=== PATIENT | male | born 1965 | race American Indian/Alaskan Native ===

== ENCOUNTER 2019-03-01 22:04 | Inpatient (IN) | payer SELFPAY ==
--- NOTE | 2019-03-02 00:07 | Emergency Department Report ---
ED Abdominal Pain HPI - General Chief Complaint: Abdominal Pain Stated Complaint: SEVERE ABDOMINAL PAIN Time Seen by Provider: 03/01/19 23:47 Source: patient Mode of arrival: Ambulatory Limitations: No Limitations - History of Present Illness Initial Comments: Patient is a 53-year-old male presents to emergency room with complaints of left lower quadrant abdominal pain that began 6 days ago. Describes the pain as an aching. States that he has had constipation for 3 days. States he is still able to pass gas. pt states whenever he tries to eat he has abdominal distention so he has not been eating very much. Denies any nausea, vomiting, diarrhea, blood in the stool, any other symptoms. States he has a past medical history of hypertension. denies any allergies to medications. denies any prior abdominal surgeries. States that he tried to take Metamucil for his constipation but was still not able to have a bowel movement. pt has not had a colonoscopy. Severity scale (0 -10): 7 - Related Data Allergies Allergy/AdvReac Type Severity Reaction Status Date / Time No Known Allergies Allergy Verified 03/02/19 03:00 ED Review of Systems ROS: Stated complaint: SEVERE ABDOMINAL PAIN Other details as noted in HPI Comment: All other systems reviewed and negative ED Past Medical Hx - Past Medical History Previous Medical History?: Yes Hx Hypertension: Yes - Surgical History Past Surgical History?: No - Social History Smoking Status: Former Smoker Substance Use Type: None ED Physical Exam - General Limitations: No Limitations General appearance: alert, in no apparent distress - Head Head exam: Present: atraumatic, normocephalic - Eye Eye exam: Present: normal appearance - ENT ENT exam: Present: mucous membranes moist - Respiratory Respiratory exam: Present: normal lung sounds bilaterally. Absent: respiratory distress, wheezes, rales, rhonchi, stridor, chest wall tenderness, accessory muscle use, decreased breath sounds, prolonged expiratory - Cardiovascular Cardiovascular Exam: Present: regular rate, normal rhythm, normal heart sounds. Absent: systolic murmur, diastolic murmur, rubs, gallop - GI/Abdominal GI/Abdominal exam: Present: soft, tenderness (LLQ), normal bowel sounds, other (no peritoneal signs). Absent: distended, guarding, rebound, rigid - exam: Present: normal inspection, other (no testicular edema or pain with palpation, no inguinal hernia, crop picker: TERESE felipe). Absent: testicular tenderness, urethral discharge, scrotal swelling External exam: Present: normal external exam. Absent: erythema, swelling, lesions, lacerations, ecchymosis, bleeding - Neurological Exam Neurological exam: Present: alert, oriented X3 - Psychiatric Psychiatric exam: Present: normal affect, normal mood - Skin Skin exam: Present: warm, dry, intact ED Course Vital Signs 03/01/19 03/01/19 03/02/19 23:20 23:50 00:20 Temperature 98.2 F 98.1 F Pulse Rate 95 H 82 Respiratory 20 19 18 Rate Blood Pressure 144/111 Blood Pressure 156/90 [Left] O2 Sat by Pulse 98 99 Oximetry 03/02/19 00:50 Temperature Pulse Rate Respiratory 18 Rate Blood Pressure Blood Pressure [Left] O2 Sat by Pulse Oximetry - Consultations Consultation #1: 03/02/19 01:[address] Frazier, general surgeon who will consult on patient, will see pt in AM, advised to keep NPO, give abx, and discussed if he had cardiac issues then to consult cardiology for pre surgical evaluation, advised pt only has HTN. Consultation #2: 03/02/19 01:[address] Marino, hospitalist who will accept and resume care of pt and admit pt to the hospital ED Medical Decision Making - Lab Data Result diagrams: 03/01/19 Unknown 03/01/19 Unknown Lab Results 03/01/19 03/01/19 03/02/19 Range/Units Unknown Unknown Unknown WBC 9.1 (4.5-11.0) K/mm3 RBC 4.39 (3.65-5.03) M/mm3 Hgb 12.9 (11.8-15.2) gm/dl Hct 38.6 (35.5-45.6) % MCV 88 (84-94) fl MCH 29 (28-32) pg MCHC 33 (32-34) % RDW 13.2 (13.2-15.2) % Plt Count 276 (140-440) K/mm3 Lymph % (Auto) 25.0 (13.4-35.0) % [place] % (Auto) 7.3 (0.0-7.3) % Eos % (Auto) 1.0 (0.0-4.3) % Baso % (Auto) 0.5 (0.0-1.8) % Lymph # 2.3 (1.2-5.4) K/mm3 [place] # 0.7 (0.0-0.8) K/mm3 Eos # 0.1 (0.0-0.4) K/mm3 Baso # 0.0 (0.0-0.1) K/mm3 Seg Neutrophils % 66.2 (40.0-70.0) % Seg Neutrophils # 6.0 (1.8-7.7) K/mm3 Sodium 139 (137-145) mmol/L Potassium 3.4 L (3.6-5.0) mmol/L Chloride 102.1 (98-107) mmol/L Carbon Dioxide 24 (22-30) mmol/L Anion Gap 16 mmol/L BUN 12 (9-20) mg/dL Creatinine 0.9 (0.8-1.5) mg/dL Estimated GFR > 60 ml/min BUN/Creatinine Ratio 13 % Glucose 114 H (75-100) mg/dL Calcium 8.7 (8.4-10.2) mg/dL Magnesium (1.7-2.3) mg/dL Total Bilirubin 0.60 (0.1-1.2) mg/dL AST 23 (5-40) units/L ALT 33 (7-56) units/L Alkaline Phosphatase 96 (35-129) units/L Total Creatine Kinase (55-170) units/L Total Protein 7.7 (6.3-8.2) g/dL Albumin 4.1 (3.9-5) g/dL Albumin/Globulin Ratio 1.1 % Lipase 25 (13-60) units/L Urine Color Yellow (Yellow) Urine Turbidity Clear (Clear) Urine pH 6.0 (5.0-7.0) Ur Specific [place] 1.055 H (1.003-1.030) Urine Protein <15 mg/dl (Negative) mg/dL Urine Glucose (UA) Neg (Negative) mg/dL Urine Ketones Neg (Negative) mg/dL Urine Blood Neg (Negative) Urine Nitrite Neg (Negative) Urine Bilirubin Neg (Negative) Urine Urobilinogen < 2.0 (<2.0) mg/dL Ur Leukocyte Esterase Mod (Negative) Urine WBC (Auto) 3.0 (0.0-6.0) /HPF Urine RBC (Auto) 2.0 (0.0-6.0) /HPF U Epithel Cells (Auto) 11.0 (0-13.0) /HPF Urine Mucus Few /HPF 03/02/19 Range/Units Unknown WBC (4.5-11.0) K/mm3 RBC (3.65-5.03) M/mm3 Hgb (11.8-15.2) gm/dl Hct (35.5-45.6) % MCV (84-94) fl MCH (28-32) pg MCHC (32-34) % RDW (13.2-15.2) % Plt Count (140-440) K/mm3 Lymph % (Auto) (13.4-35.0) % [place] % (Auto) (0.0-7.3) % Eos % (Auto) (0.0-4.3) % Baso % (Auto) (0.0-1.8) % Lymph # (1.2-5.4) K/mm3 [place] # (0.0-0.8) K/mm3 Eos # (0.0-0.4) K/mm3 Baso # (0.0-0.1) K/mm3 Seg Neutrophils % (40.0-70.0) % Seg Neutrophils # (1.8-7.7) K/mm3 Sodium (137-145) mmol/L Potassium (3.6-5.0) mmol/L Chloride (98-107) mmol/L Carbon Dioxide (22-30) mmol/L Anion Gap mmol/L BUN (9-20) mg/dL Creatinine (0.8-1.5) mg/dL Estimated GFR ml/min BUN/Creatinine Ratio % Glucose (75-100) mg/dL Calcium (8.4-10.2) mg/dL Magnesium 1.80 (1.7-2.3) mg/dL Total Bilirubin (0.1-1.2) mg/dL AST (5-40) units/L ALT (7-56) units/L Alkaline Phosphatase (35-129) units/L Total Creatine Kinase 216 H (55-170) units/L Total Protein (6.3-8.2) g/dL Albumin (3.9-5) g/dL Albumin/Globulin Ratio % Lipase (13-60) units/L Urine Color (Yellow) Urine Turbidity (Clear) Urine pH (5.0-7.0) Ur Specific [place] (1.003-1.030) Urine Protein (Negative) mg/dL Urine Glucose (UA) (Negative) mg/dL Urine Ketones (Negative) mg/dL Urine Blood (Negative) Urine Nitrite (Negative) Urine Bilirubin (Negative) Urine Urobilinogen (<2.0) mg/dL Ur Leukocyte Esterase (Negative) Urine WBC (Auto) (0.0-6.0) /HPF Urine RBC (Auto) (0.0-6.0) /HPF U Epithel Cells (Auto) (0-13.0) /HPF Urine Mucus /HPF - Radiology Data Radiology results: report reviewed CT abdomen pelvis w con INDICATION / CLINICAL INFORMATION: LLQ pain, constipation. TECHNIQUE: All CT scans at this location are performed using CT dose reduction for ALARA by means of automated exposure control. COMPARISON: None available. FINDINGS: Limited lower thoracic images show no acute pulmonary disease. ABDOMEN: There is a small pneumoperitoneum. Acute diverticulitis of the distal descending colon is identified with surrounding moderate edema and localized gas collection due to perforation. Fatty infiltration of the liver. The gallbladder appears normal. No pancreatic lesions. There is some mild prominence of the pancreatic duct. No splenic enlargement. No significant renal abnormalities. Pelvis: The appendix is normal. Inflammatory changes due to descending colon diverticulitis. No acute skeletal abnormalities. IMPRESSION: 1. Moderate acute diverticulitis the distal descending colon with small pneumoperitoneum. 2. Fatty infiltration liver. CRITICAL RESULT: Time of Discovery: 1240 hours Time of Communication: 1244 hours Licensed Practitioner Receiving Report: Eze in the [facility] emergency department Read Back Performed: Yes. Signer Name: Rogelio Damon MD Signed: 03/02/2019 1:48 AM Workstation Name: [id number] Transcribed By: GA Dictated By: Rogelio Damon MD Electronically Authenticated By: Rogelio Damon MD Signed Date/Time: 03/02/19147 DD/ 9 TD/TT: - Medical Decision Making Patient is a 53-year-old male presents to emergency room with complaints of left lower quadrant abdominal pain that began 6 days ago. Describes the pain as an aching. States that he has had constipation for 3 days. States he is still able to pass gas. pt states whenever he tries to eat he has abdominal distention so he has not been eating very much. Denies any nausea, vomiting, diarrhea, blood in the stool, any other symptoms. States he has a past medical history of hypertension. denies any allergies to medications. denies any prior abdominal surgeries. States that he tried to take Metamucil for his constipation but was still not able to have a bowel movement. pt has not had a colonoscopy. vitals with elevated BP otherwise normal. on exam: LLQ tenderness to palpation, no peritoneal signs, exam is normal. labs with mild hypokalemia which was repleted and mild hyperglycemia otherwise normal. pt is afebrile and no leukocytosis, pain is well controlled, pt is non toxic appearing. CT abd pelvis shows 1. Moderate acute diverticulitis the distal descending colon with small pneumoperitoneum. 2. Fatty infiltration liver. spoke with Dr. Frazier, general surgeon who will consult on patient, will see pt in AM, advised to keep NPO, give abx, and discussed if he had cardiac issues then to consult cardiology for pre surgical evaluation, advised pt only has HTN. Spoke with Dr. Marino, hospitalist who will accept and resume care of pt and admit pt to the hospital. pt given 1L NS, zosyn, and flagyl. pt will be admitted to the hospital. - Differential Diagnosis colitis, diverticulitis, constipation, obstruction, abscess, perforation Critical care attestation.: If time is entered above; I have spent that time in minutes in the direct care of this critically ill patient, excluding procedure time. ED Disposition Clinical Impression: Diverticulitis, Pneumoperitoneum Abdominal pain Qualifiers: Abdominal location: left lower quadrant Qualified Code(s): R10.32 - Left lower quadrant pain Constipation Qualifiers: Constipation type: unspecified constipation type Qualified Code(s): K59.00 - C onstipation, unspecified Disposition: OP ADMIT IP TO THIS HOSP Is pt being admited?: Yes Does the pt Need Aspirin: No Condition: Stable Instructions: Diverticulitis (ED), Diverticulitis Diet (ED) Time of Disposition: 01:59 Print Language: COLOMBIAN
[2019-03-02] MEDS ORDERED: MORPHINE 2 MG/1 ML INJ IV ONE (00:11)
[2019-03-02] MEDS ORDERED: SODIUM CHLORIDE 0.9% 500 ML 500 ML IV ONE (00:11)
--- NOTE | 2019-03-02 00:13 | Event Note ---
Date of service: 03/02/19 Face to Face: 53-year-old gentleman, known to this provider previously, presenting with nontraumatic left lower quadrant pain, tenderness, reported chills. He is amenable to pain medicine. Plan is to treat his symptoms, obtain appropriate screening laboratory studies, urinalysis, CT scan abdomen pelvis, and reassess. Physician inventory assistant to perform exam. Discussed with AP P provider, as well as patient. Vital Signs 03/01/19 03/01/19 23:20 23:50 Temperature 98.2 F 98.1 F Pulse Rate 95 H 82 Respiratory 20 19 Rate Blood Pressure 144/111 Blood Pressure 156/90 [Left] O2 Sat by Pulse 98 99 Oximetry
[2019-03-02 00:29] LABS: Basophils % (Auto) 0.5 % (0.0-1.8); Eosinophils # (Auto) 0.1 K/mm3 (0.0-0.4); Hematocrit 38.6 % (35.5-45.6); Hemoglobin 12.9 gm/dl (11.8-15.2); Lymphocytes # (Auto) 2.3 K/mm3 (1.2-5.4); Mean Corpuscular HGB Conc 33 % (32-34); Mean Corpuscular Volume 88 fl (84-94); Monocytes # (Auto) 0.7 K/mm3 (0.0-0.8); Monocytes % (Auto) 7.3 % (0.0-7.3); Platelet Count 276 K/mm3 (140-440); Red Blood Count 4.39 M/mm3 (3.65-5.03); Red Cell Distribution Width 13.2 % (13.2-15.2)
[2019-03-02 00:44] LABS: Alanine Aminotransferase 33 units/L (7-56); Albumin 4.1 g/dL (3.9-5); BUN/Creatinine Ratio 13; Bilirubin,Urine NEG (Negative); Blood Urea Nitrogen 12 mg/dL (9-20); Blood,Urine NEG (Negative); Calcium 8.7 mg/dL (8.4-10.2); Color,Urine Yellow (Yellow); Hemolysis Index 4; Mucus,Urine FEW /HPF; Protein,Urine <15 mg/dL mg/dL (Negative); Urobilinogen,Urine < 2.0 mg/dL (<2.0)
[2019-03-02] MEDS ORDERED: POTASSIUM CHLORIDE ER 20 MEQ TAB PO ONE (01:42)
[2019-03-02] MEDS ORDERED: metroNIDAZOLE/NS 500 MG/100 ML 500 MG/100 ML BAG IV ONE (01:44)
[2019-03-02] MEDS ORDERED: PIPERACIL/TAZOBACTA 4.5/NS 100 4.5 GM/100 ML VIAL IV ONE (01:44)
[2019-03-02] MEDS ORDERED: SODIUM CHLORIDE 0.9% 1000 ML 2,000 ML IV ONE (01:45)
--- NOTE | 2019-03-02 01:52 | Cat Scan Report ---
CT abdomen pelvis w con INDICATION / CLINICAL INFORMATION: LLQ pain, constipation. TECHNIQUE: All CT scans at this location are performed using CT dose reduction for ALARA by means of automated e xposure control. COMPARISON: None available. FINDINGS: Limited lower thoracic images show no acute pulmonary disease. ABDOMEN: There is a small pneumoperitoneum. Acute diverticulitis of the distal descending colon is identified with surrounding moderate edema and localized gas collection due to perforation. Fatty infiltration of the liver. The gallbladder appears normal. No pancreatic lesions. There is some mild prominence of the pancreatic duct. No splenic enlargement. No significant renal abnormalities. Pelvis: The appendix is normal. Inflammatory changes due to descending colon diverticulitis. No acute skeletal abnormalities. IMPRESSION: 1. Moderate acute diverticulitis the distal descending colon with small pneumoperitoneum. 2. Fatty infiltration liver. CRITICAL RESULT: Time of Discovery: 1240 hours Time of Communication: 1244 hours Licensed Practitioner Receiving Report: Eze in the [facility] emergency dep artment Read Back Performed: Yes. Signer Name: Rogelio Damon MD Signed: 03/02/2019 1:48 AM Workstation Name: [id number]
[2019-03-02] MEDS ORDERED: MORPHINE 2 MG/1 ML INJ IV PRN (02:46)
[2019-03-02] MEDS ORDERED: ONDANSETRON 4 MG/2 ML INJ IV PRN (02:46)
[2019-03-02] MEDS ORDERED: ACETAMINOPHEN 650 MG RECT SUPP PR PRN (02:47)
[2019-03-02] MEDS ORDERED: hydrALAZINE 20 MG/1 ML INJ IV PRN (03:09)
[2019-03-02] MEDS ORDERED: SODIUM CHLORIDE 0.9% 1000 ML 1,000 ML ONE (03:55)
[2019-03-02 05:44] LABS: BUN/Creatinine Ratio 10; Blood Urea Nitrogen 8 mg/dL (9-20); Calcium 7.9 mg/dL (8.4-10.2); Hemolysis Index 1
--- NOTE | 2019-03-02 07:31 | Progress Note ---
Assessment and Plan Assessment and plan: Patient is a 53 yo man with a history hypertension who presented with abd pain, nausea and vomiting. * CT abd/pelvis with contrast IMPRESSION: 1. Moderate acute diverticulitis the distal descending colon with small pneumoperitoneum. 2. Fatty infiltration liver -Acute complicated Diverticulitis with suspected perforation: GS consulted, input noted, recommend Cardiology evaluation for pre-op evaluation, npo, treat with empiric abx, ivf -Uncontrolled hypertension: iv hydralazine prn -Hypokalemia: replace and monitor bmp closely Prolonged inpatient services 33 minutes History Interval history: Patient was seen and examined. Follow-up on current diagnosis of Diverticulitis. No overnight events reported to me. Patient denies any chest pain, shortness breath, severe headaches. Imaging, nursing note, chart, labs and old chart reviewed. Discussed with patient. Hospitalist Physical - Physical exam Narrative exam: Gen: WDWN, NAD, Awake, Alert, Orientated HEENT: NCAT, EOMI, PERRL, OP Clear Neck: supple, no adenopathy, no thyromegaly, no JVD CVS/Heart: RRR, normal S1S2, pulses present bilaterally Chest/Lungs: CTA B, Symmetrical chest expansion, good air entry bilaterally GI/Abdomen: soft, diffuse tenderness, good bowel sounds, no guarding or rebound /Bladder: no suprapubic tenderness, no CVA or paraspinal tenderness Extermity/Skin: no c/c/e, no obvious rash MSK: FROM x 4 Neuro: CN 2-12 grossly intact, no new focal deficits Psych: calm - Constitutional Vitals: Temp Pulse Resp BP Pulse Ox 98.4 F 72 17 117/76 95 03/02/19 05:29 03/02/19 05:29 03/02/19 05:29 03/02/19 05:29 03/02/19 05:29 Results - Labs CBC & Chem 7: 03/01/19 Unknown 03/02/19 05:06 Labs: Laboratory Last Values WBC 9.1 K/mm3 (4.5-11.0) 03/01/19 Unknown RBC 4.39 M/mm3 (3.65-5.03) 03/01/19 Unknown Hgb 12.9 gm/dl (11.8-15.2) 03/01/19 Unknown Hct 38.6 % (35.5-45.6) 03/01/19 Unknown MCV 88 fl (84-94) 03/01/19 Unknown MCH 29 pg (28-32) 03/01/19 Unknown MCHC 33 % (32-34) 03/01/19 Unknown RDW 13.2 % (13.2-15.2) 03/01/19 Unknown Plt Count 276 K/mm3 (140-440) 03/01/19 Unknown Lymph % (Auto) 25.0 % (13.4-35.0) 03/01/19 Unknown [place] % (Auto) 7.3 % (0.0-7.3) 03/01/19 Unknown Eos % (Auto) 1.0 % (0.0-4.3) 03/01/19 Unknown Baso % (Auto) 0.5 % (0.0-1.8) 03/01/19 Unknown Lymph # 2.3 K/mm3 (1.2-5.4) 03/01/19 Unknown Bureau # 0.7 K/mm3 (0.0-0.8) 03/01/19 Unknown Eos # 0.1 K/mm3 (0.0-0.4) 03/01/19 Unknown Baso # 0.0 K/mm3 (0.0-0.1) 03/01/19 Unknown Seg Neutrophils % 66.2 % (40.0-70.0) 03/01/19 Unknown Seg Neutrophils # 6.0 K/mm3 (1.8-7.7) 03/01/19 Unknown Sodium 139 mmol/L (137-145) 03/02/19 05:06 Potassium 3.8 mmol/L (3.6-5.0) 03/02/19 05:06 Chloride 105.9 mmol/L (98-107) 03/02/19 05:06 Carbon Dioxide 23 mmol/L (22-30) 03/02/19 05:06 Anion Gap 14 mmol/L 03/02/19 05:06 BUN 8 mg/dL (9-20) L 03/02/19 05:06 Creatinine 0.8 mg/dL (0.8-1.5) 03/02/19 05:06 Estimated GFR > 60 ml/min 03/02/19 05:06 BUN/Creatinine Ratio 10 % 03/02/19 05:06 Glucose 102 mg/dL (75-100) H 03/02/19 05:06 Calcium 7.9 mg/dL (8.4-10.2) L 03/02/19 05:06 Magnesium 1.80 mg/dL (1.7-2.3) 03/02/19 Unknown Total Bilirubin 0.60 mg/dL (0.1-1.2) 03/01/19 Unknown AST 23 units/L (5-40) 03/01/19 Unknown ALT 33 units/L (7-56) 03/01/19 Unknown Alkaline Phosphatase 96 units/L (35-129) 03/01/19 Unknown Total Creatine Kinase 216 units/L (55-170) H 03/02/19 Unknown Total Protein 7.7 g/dL (6.3-8.2) 03/01/19 Unknown Albumin 4.1 g/dL (3.9-5) 03/01/19 Unknown Albumin/Globulin Ratio 1.1 % 03/01/19 Unknown Lipase 25 units/L (13-60) 03/01/19 Unknown Urine Color Yellow (Yellow) 03/02/19 Unknown Urine Turbidity Clear (Clear) 03/02/19 Unknown Urine pH 6.0 (5.0-7.0) 03/02/19 Unknown Ur Specific [place] 1.055 (1.003-1.030) H 03/02/19 Unknown Urine Protein <15 mg/dl mg/dL (Negative) 03/02/19 Unknown Urine Glucose (UA) Neg mg/dL (Negative) 03/02/19 Unknown Urine Ketones Neg mg/dL (Negative) 03/02/19 Unknown Urine Blood Neg (Negative) 03/02/19 Unknown Urine Nitrite Neg (Negative) 03/02/19 Unknown Urine Bilirubin Neg (Negative) 03/02/19 Unknown Urine Urobilinogen < 2.0 mg/dL (<2.0) 03/02/19 Unknown Ur Leukocyte Esterase Mod (Negative) 03/02/19 Unknown Urine WBC (Auto) 3.0 /HPF (0.0-6.0) 03/02/19 Unknown Urine RBC (Auto) 2.0 /HPF (0.0-6.0) 03/02/19 Unknown U Epithel Cells (Auto) 11.0 /HPF (0-13.0) 03/02/19 Unknown Urine Mucus Few /HPF 03/02/19 Unknown Active Medications - Current Medications Current Medications: Generic Name Dose Route Start Last Admin Trade Name Freq PRN Reason Stop Dose Admin Acetaminophen 650 mg 03/02/19 02:47 Tylenol TX Q4H PRN Fever >101 Hydralazine HCl 10 mg 03/02/19 03:09 Apresoline IV Q4HR PRN Blood Pressure Dextrose/Sodium Chloride 1,000 mls @ 125 mls/hr 03/02/19 03:00 D5/0.45ns IV DIRECT REGINA Piperacillin Sod/Tazobactam Sod 3.375 gm in 50 mls @ 100 mls/hr 03/02/19 10:00 Zosyn/Ns 3.375gm/50ml IV Q8H REGINA Protocol Metronidazole 500 mg in 100 mls @ 100 mls/hr 03/02/19 10:00 Flagyl 500 Mg/100 Ml IV Q8H REGINA Protocol Morphine Sulfate 2 mg 03/02/19 02:46 Morphine IV Q3H PRN Pain, Moderate (4-6) Ondansetron HCl 4 mg 03/02/19 02:46 Zofran IV Q8H PRN Nausea And Vomiting
--- NOTE | 2019-03-02 07:55 | History and Physical Report ---
CHIEF COMPLAINT: Abdominal pain. HISTORY OF PRESENTING ILLNESS: The patient is a 53-year-old male who said he has been having left lower quadrant abdominal pain going on for about 5-6 days. The patient described the pain as dull and achy pain and said that there is associated constipation for those number of days. The patient denied history of fever, denied history of chills and said that whenever he tries to eat, he gets bloated up and as such has not been eating much. There is no history of nausea or vomiting. There is also no history of shortness of breath or chest pain. The left lower quadrant abdominal pain does not radiate. PAST MEDICAL HISTORY: Pertinent for hypertension. PAST SURGICAL HISTORY: Unremarkable. FAMILY HISTORY: Noncontributory. SOCIAL HISTORY: The patient does not smoke, does not drink alcohol and does not use illicit drugs. MEDICATIONS: The patient is not on any home medications. ALLERGIES: There are no known drug allergies. REVIEW OF SYSTEMS: CONSTITUTIONAL: There is no fever. There are no chills and there is no diaphoresis. HEENT: There is no headache or sore throat. CARDIOVASCULAR SYSTEM: There is no chest pain or orthopnea. RESPIRATORY SYSTEM: There is no shortness of breath or cough. GASTROINTESTINAL: Left lower quadrant abdominal pain noted. Constipation noted. No nausea, no vomiting, no diarrhea. NEUROLOGICAL SYSTEM: There is no numbness, no dizziness, no altered mental status. MUSCULOSKELETAL SYSTEM: There is no joint pain or swelling. DERMATOLOGICAL SYSTEM: There is no skin rash or itching. GENITOURINARY SYSTEM: There is no dysuria, hematuria, or flank pain. Rest of system review is normal. PHYSICAL EXAMINATION: GENERAL: At the time of exam, the patient was found to be alert, oriented x 3 and not in acute distress. VITAL SIGNS: At the initial time of presentation showed temperature of 98.2 degrees Fahrenheit, pulse of 95, respirations 20, blood pressure 144/111 with repeat blood pressure after about 30 minutes shows a pressure of 156/90, O2 sat of 98% on room air. HEENT: Showed pupils to be equal, round, reactive to light and accommodating. Extraocular muscles are intact. NECK: Supple with no JVD or carotid bruit. CARDIOVASCULAR SYSTEM: Showed normal first and second heart sounds with no gallops or murmurs. RESPIRATORY SYSTEM: Showed good air entry on both sides of the lungs with no abnormal breath sounds. GASTROINTESTINAL SYSTEM: Showed abdomen to be full, soft and tender in the left lower quadrant area with no rebound tenderness, no rigidity or guarding. Bowel sound is normal. NEUROLOGICAL SYSTEM: Showed no focal deficit. MUSCULOSKELETAL SYSTEM: Showed no joint swelling or tenderness. DERMATOLOGICAL SYSTEM: Showed no skin rash. GENITOURINARY SYSTEM: Showing no costovertebral angle tenderness. PERTINENT LABORATORY AND IMAGING STUDIES: The patient had CBC done that came back unremarkable. The patient's chemistry shows slight decrease in potassium level of 3.4 and rest of the patient's chemistry shows slight increase in total creatine kinase of 216. Urinalysis shows yellow clear urine with high-specific gravity of 1.055 and normal urine nitrite with elevated urine leukocyte esterase of moderate intensity with no bacteria found and normal urine wbc. IMAGING STUDIES: The patient has CT of the abdomen and pelvis with contrast done that shows moderate acute diverticulitis in the distal descending colon with small pneumoperitoneum. There is also finding of fatty infiltrate in the liver. DIAGNOSES: 1. Diverticulitis. 2. Pneumoperitoneum. 3. Hypertension. 4. Hypokalemia. PLAN OF CARE: 1. The patient will be admitted to medical/surgical barron. 2. The patient will continue surgical consult with Dr. Frazier who is already notified of the patient's presentation and the surgeon requested the patient to be n.p.o. on IV fluid and pain medication. 3. The patient will be on IV Zosyn 3.375 grams q.8 hours and IV metronidazole 500 mg q.8 hours. 4. The patient will be on IV D5 half normal saline running at 125 mL an hour. 5. The patient will be on IV hydralazine 10 mg every 4 hours as needed for blood pressure of about 150/90 or more. 6. The patient will be on IV morphine 2 mg every 3 hours as needed for pain and IV Zofran 4 mg every 8 hours as needed for nausea and vomiting. 7. The patient will have basic metabolic panel checked in the morning to monitor the potassium level. 8. The patient will remain n.p.o. until seen by the surgeon in the morning. JOB# [id number] OCN/NTS
[2019-03-02] MEDS: PIPERACILLIN/TAZOBACTAM 3.375 3.375 GM/50 ML BAG IV SCH ×2 (10:00→17:48)
[2019-03-02] MEDS: metroNIDAZOLE/NS 500 MG/100 ML 500 MG/100 ML BAG IV SCH ×2 (10:06→17:48)
--- NOTE | 2019-03-02 10:24 | Consultation ---
History of Present Illness Consult date: 03/02/19 Requesting physician: ADDISON CURRAN Consult reason: other (surgical clearance) History of present illness: Patient is a 53-year-old male with a past medical history of hypertension who presented to the hospital complaining of left lower quadrant abdominal pain. Patient has been progressing for the past week, as symptoms continued to worsen he is noted to the emergency room. In the emergency room he had a CT scan that revealed diverticulitis with perforation and small amount of pneumoperitoneum. Patient reports that prior to his abdominal pain he was nonreactive. 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 Functional capacity easy exceeds 6-7 mets. No prior history of CAD. No prior cardiac workup. Has a history of hypertension on irregular treatment. No family history of CAD. Past History Past Medical History: hypertension Past Surgical History: No surgical history Social history: no significant social history Family history: no significant family history Medications and Allergies Allergies Allergy/AdvReac Type Severity Reaction Status Date / Time No Known Allergies Allergy Verified 03/02/19 03:00 Home Medications Medication Instructions Recorded Confirmed Last Taken Type No Known Home Medications [No 03/02/19 03/02/19 Unknown History Reported Home Medications] Active Meds: Active Medications Acetaminophen (Tylenol) 650 mg MA Q4H PRN PRN Reason: Fever >101 Hydralazine HCl (Apresoline) 10 mg IV Q4HR PRN PRN Reason: Blood Pressure Dextrose/Sodium Chloride (D5/0.45ns) 1,000 mls @ 125 mls/hr IV DIRECT REGINA Piperacillin Sod/Tazobactam Sod (Zosyn/Ns 3.375gm/50ml) 3.375 gm in 50 mls @ 100 mls/hr IV Q8H REGINA; Protocol Metronidazole (Flagyl 500 Mg/100 Ml) 500 mg in 100 mls @ 100 mls/hr IV Q8H REGINA; Protocol Last Admin: 03/02/19 10:06 Dose: 100 mls/hr Documented by: Morphine Sulfate (Morphine) 2 mg IV Q3H PRN PRN Reason: Pain, Moderate (4-6) Ondansetron HCl (Zofran) 4 mg IV Q8H PRN PRN Reason: Nausea And Vomiting Review of Systems All systems: negative (as mentioned in H&P) Physical Examination Vital Signs Temp Pulse Resp BP Pulse Ox 98.2 F 95 H 20 144/111 98 03/01/19 23:20 03/01/19 23:20 03/01/19 23:20 03/01/19 23:20 03/01/19 23:20 Narrative exam: General appearance: no acute distress HEENT: Normocephalic Neck: Carotids 2+ Cardiac: S1 and S2 heard no murmur noted Lungs: Normal breath sounds Abd: Mild tenderness left lower quadrant, breath sounds decreased Neuro: Grossly Intact Extremities: No edema noted Results 03/01/19 Unknown 03/02/19 05:06 Cardiac Enzymes 03/01/19 Range/Units Unknown AST 23 (5-40) units/L CBC 03/01/19 Range/Units Unknown WBC 9.1 (4.5-11.0) K/mm3 RBC 4.39 (3.65-5.03) M/mm3 Hgb 12.9 (11.8-15.2) gm/dl Hct 38.6 (35.5-45.6) % Plt Count 276 (140-440) K/mm3 Lymph # 2.3 (1.2-5.4) K/mm3 [place] # 0.7 (0.0-0.8) K/mm3 Eos # 0.1 (0.0-0.4) K/mm3 Baso # 0.0 (0.0-0.1) K/mm3 Comprehensive Metabolic Panel 03/01/19 03/02/19 Range/Units Unknown 05:06 Sodium 139 139 (137-145) mmol/L Potassium 3.4 L 3.8 (3.6-5.0) mmol/L Chloride 102.1 105.9 (98-107) mmol/L Carbon Dioxide 24 23 (22-30) mmol/L BUN 12 8 L (9-20) mg/dL Creatinine 0.9 0.8 (0.8-1.5) mg/dL Glucose 114 H 102 H (75-100) mg/dL Calcium 8.7 7.9 L (8.4-10.2) mg/dL AST 23 (5-40) units/L ALT 33 (7-56) units/L Alkaline Phosphatase 96 (35-129) units/L Total Protein 7.7 (6.3-8.2) g/dL Albumin 4.1 (3.9-5) g/dL Assessment and Plan Impression * Abdominal pain diverticulitis and possible presentation * Hypertension * Preop evaluation Plan: * EKG for preoperative evaluation * Continue IV hydralazine for blood pressure control and change to oral calcium channel blockers once patient's status taking by mouth * If the EKG reveals no Q waves. no further work up needed from cardiac standpoint. Ptient has good functional capacity and no significant cardiac risk factors. Patient can be cleared for procedure with low to moderate risk.
--- NOTE | 2019-03-02 12:54 | Consultation ---
History of Present Illness Consult date: 03/02/19 Reason for consult: abdominal pain Requesting physician: CHRISTOPHER ANN Chief complaint: LLQ pain - History of present illness History of present illness: 53yo M presents to emergency room with complaints of left lower quadrant abdominal pain that began 6 days ago. Describes the pain as an aching. States that he has had constipation for 3 days. States he is still able to pass gas. pt states whenever he tries to eat he has abdominal distention so he has not been eating very much. Denies any nausea, vomiting, diarrhea, blood in the stool, any other symptoms. +Fevers. Had a good BM last night. Feels better today. He has less pain and distention today. He is hungry. He remembered that he had the exact same pain about 2-3 years ago for which she was given oral antibiotics. He believes they called it diverticulitis. Pt has not had a colonoscopy. Past History Past Medical History: hypertension Past Surgical History: No surgical history Social history: no significant social history Family history: no significant family history Medications and Allergies Allergies Allergy/AdvReac Type Severity Reaction Status Date / Time No Known Allergies Allergy Verified 03/02/19 03:00 Home Medications Medication Instructions Recorded Confirmed Last Taken Type No Known Home Medications [No 03/02/19 03/02/19 Unknown History Reported Home Medications] Active Meds: Active Medications Acetaminophen (Tylenol) 650 mg [place] Q4H PRN PRN Reason: Fever >101 Hydralazine HCl (Apresoline) 10 mg IV Q4HR PRN PRN Reason: Blood Pressure Dextrose/Sodium Chloride (D5/0.45ns) 1,000 mls @ 125 mls/hr IV DIRECT REGINA Piperacillin Sod/Tazobactam Sod (Zosyn/Ns 3.375gm/50ml) 3.375 gm in 50 mls @ 100 mls/hr IV Q8H REGINA; Protocol Last Admin: 03/02/19 10:00 Dose: 100 mls/hr Documented by: Metronidazole (Flagyl 500 Mg/100 Ml) 500 mg in 100 mls @ 100 mls/hr IV Q8H REGINA; Protocol Last Admin: 03/02/19 10:06 Dose: 100 mls/hr Documented by: Morphine Sulfate (Morphine) 2 mg IV Q3H PRN PRN Reason: Pain, Moderate (4-6) Ondansetron HCl (Zofran) 4 mg IV Q8H PRN PRN Reason: Nausea And Vomiting Review of Systems - Constitutional fever, no chills, no chronic pain - Cardiovascular no chest pain, no shortness of breath - Respiratory no cough - Gastrointestinal abdominal pain (focal in LLQ), constipation, change in bowel habits, dyspepsia/bloating, no nausea, no vomiting - Genitourinary no dysuria - Muskuloskeletal no low back pain - Integumentary no rash, no pruritis, no redness, no sores, no wounds Exam Vital Signs Temp Pulse Resp BP Pulse Ox 98.2 F 95 H 20 144/111 98 03/01/19 23:20 03/01/19 23:20 03/01/19 23:20 03/01/19 23:20 03/01/19 23:20 - General physical appearance Positive: well developed, well nourished, no distress, no pain, other (pleasant) - Eyes Positive: normal occular movement. Negative: pale, icteric - Respiratory Positive: normal expansion, normal respiratory effort, clear to auscultation - Cardiovascular Rhythm: regular - Abdomen Abdomen: Present: soft, tender (only in LLQ. ), bowel sounds hypoactive, other (protuberant abdomen). Absent: distended, guarding, rigid, wound, surgical scars - Integumentary no rash, no growths, no abnormal pigmentation - Neurologic Neurologic: alert and oriented to time, place and person, motor strength and sensation are grossly intact - Psychiatric Psychiatric: appropriate mood/affect, intact judgment & insight, cooperative Results - Labs 03/01/19 Unknown 03/02/19 05:06 Abnormal lab results 03/01/19 03/02/19 03/02/19 Range/Units Unknown 05:06 Unknown Potassium 3.4 L (3.6-5.0) mmol/L BUN 8 L (9-20) mg/dL Glucose 114 H 102 H (75-100) mg/dL Calcium 7.9 L (8.4-10.2) mg/dL Total Creatine Kinase (55-170) units/L Ur Specific [place] 1.055 H (1.003-1.030) 03/02/19 Range/Units Unknown Potassium (3.6-5.0) mmol/L BUN (9-20) mg/dL Glucose (75-100) mg/dL Calcium (8.4-10.2) mg/dL Total Creatine Kinase 216 H (55-170) units/L Ur Specific [place] (1.003-1.030) Diabetes panel 03/01/19 03/02/19 Range/Units Unknown 05:06 Sodium 139 139 (137-145) mmol/L Potassium 3.4 L 3.8 (3.6-5.0) mmol/L Chloride 102.1 105.9 (98-107) mmol/L Carbon Dioxide 24 23 (22-30) mmol/L BUN 12 8 L (9-20) mg/dL Creatinine 0.9 0.8 (0.8-1.5) mg/dL Glucose 114 H 102 H (75-100) mg/dL Calcium 8.7 7.9 L (8.4-10.2) mg/dL AST 23 (5-40) units/L ALT 33 (7-56) units/L Alkaline Phosphatase 96 (35-129) units/L Total Protein 7.7 (6.3-8.2) g/dL Albumin 4.1 (3.9-5) g/dL Calcium panel 03/01/19 03/02/19 Range/Units Unknown 05:06 Calcium 8.7 7.9 L (8.4-10.2) mg/dL Albumin 4.1 (3.9-5) g/dL Pituitary panel 03/01/19 03/02/19 Range/Units Unknown 05:06 Sodium 139 139 (137-145) mmol/L Potassium 3.4 L 3.8 (3.6-5.0) mmol/L Chloride 102.1 105.9 (98-107) mmol/L Carbon Dioxide 24 23 (22-30) mmol/L BUN 12 8 L (9-20) mg/dL Creatinine 0.9 0.8 (0.8-1.5) mg/dL Glucose 114 H 102 H (75-100) mg/dL Calcium 8.7 7.9 L (8.4-10.2) mg/dL Adrenal panel 03/01/19 03/02/19 Range/Units Unknown 05:06 Sodium 139 139 (137-145) mmol/L Potassium 3.4 L 3.8 (3.6-5.0) mmol/L Chloride 102.1 105.9 (98-107) mmol/L Carbon Dioxide 24 23 (22-30) mmol/L BUN 12 8 L (9-20) mg/dL Creatinine 0.9 0.8 (0.8-1.5) mg/dL Glucose 114 H 102 H (75-100) mg/dL Calcium 8.7 7.9 L (8.4-10.2) mg/dL Total Bilirubin 0.60 (0.1-1.2) mg/dL AST 23 (5-40) units/L ALT 33 (7-56) units/L Alkaline Phosphatase 96 (35-129) units/L Total Protein 7.7 (6.3-8.2) g/dL Albumin 4.1 (3.9-5) g/dL - Imaging CT scan - abdomen: report reviewed, image reviewed CT scan - pelvis: report reviewed, image reviewed Assessment and Plan - Patient Problems (1) Diverticulitis of colon with perforation Current Visit: Yes Status: Acute Qualifiers: Diverticulitis bleeding: without bleeding Qualified Code(s): K57.20 - Diverticulitis of large intestine with perforation and abscess without bleeding Plan to address problem: Pt stable. By his report, he is improved by having less pain. Other than dehydration, his labs are otherwise unremarkable. Had a long discussion about the nature of diverticulitis and the treatment plan. He understands that once he is feeling better and able to tolerate diet, we will discharge him home on oral antibiotics. In about 6 weeks' time, he will need to have a colonoscopy and then subsequently follow up with us to plan surgery. As this is his second episode and now he has had a complicated diverticulitis, surgery is indicated to remove the diseased segment. This was explained to him and he understands. I think he would be fine to start him on a clear liquid diet today. Encouraged him to ambulate in the hallway We'll follow along. Please call with questions. Time = 30 minutes
[2019-03-02] MEDS: D5W/0.45% NACL 1,000 ML IV SCH (23:37)
[2019-03-03] MEDS: metroNIDAZOLE/NS 500 MG/100 ML 500 MG/100 ML BAG IV SCH ×2 (02:02→10:50)
[2019-03-03] MEDS: PIPERACILLIN/TAZOBACTAM 3.375 3.375 GM/50 ML BAG IV SCH ×2 (02:02→10:50)
[2019-03-03] MEDS: D5W/0.45% NACL 1,000 ML IV SCH (08:40)
--- NOTE | 2019-03-03 10:59 | Progress Note ---
Assessment and Plan Impression * Abdominal pain diverticulitis and possible perforation improving. OP surgery being planned * Hypertension * Preop evaluation Plan: * EKG for preoperative evaluation ( still pending ) * Continue IV hydralazine PRN. Now that patient is taking PO start patient on amlodipine * If the EKG reveals no Q waves. no further work up needed from cardiac standpoint. Patient has good functional capacity and no significant cardiac risk factors. Patient can be cleared for procedure with low to moderate risk. Subjective Date of service: 03/03/19 Principal diagnosis: diverticulitis Interval history: patient reports he is feeling much better Objective Vital Signs Temp Pulse Resp Resp BP BP Pulse Ox 03/03/19 04:51 97.8 F 70 18 147/80 96 03/03/19 00:53 98.2 F 147/82 03/02/19 22:00 17 17 03/02/19 17:01 97.7 F 71 18 157/95 99 03/02/19 12:03 98.0 F 66 18 161/98 98 - Physical Examination Narrative exam: General appearance: no acute distress HEENT: Normocephalic Neck: Carotids 2+ Cardiac: S1 and S2 heard no murmur noted Lungs: Normal breath sounds Abd: Mild tenderness left lower quadrant, breath sounds decreased Neuro: Grossly Intact Extremities: No edema noted
[2019-03-03] MEDS ORDERED: amLODIPine 5 MG TAB PO SCH (11:30)
--- NOTE | 2019-03-03 12:16 | Discharge Summary ---
Providers - Providers Date of Admission: 03/02/19 04:11 Date of discharge: 03/03/19 Attending physician: ADDISON CURRAN 03/02/19 01:44 Consult to Physician [CONS] Urgent Comment: Consulting Provider: MILO FORD Physician Instructions: Reason For Exam: diverticulitis with microperforation 03/02/19 07:32 Consult to Physician [CONS] Routine Comment: Consulting Provider: ALFONSO DEE Physician Instructions: Reason For Exam: pre-op cardiac eval for clearance [facility] Condition: Stable Hospital course: Patient is a 53 yo man with a history hypertension who presented with abd pain, nausea and vomiting. * CT abd/pelvis with contrast IMPRESSION: 1. Moderate acute diverticulitis the distal descending colon with small pneumoperitoneum. 2. Fatty infiltration liver Discharge Diagnoses: -Acute complicated Diverticulitis with suspected microperforation: -Uncontrolled hypertension: iv hydralazine prn -Hypokalemia: replace and monitor bmp closely Disposition: DC-01 TO HOME OR SELFCARE Time spent for discharge: 34 minutes Core Measure Documentation - Palliative Care Palliative Care/ Comfort Measures: Not Applicable - Core Measures Any of the following diagnoses?: none - VTE Discharge Requirements Deep Vein Thrombosis/Pulmonary Embolism Present on Admission: No Has pt received <5 days of overlap therapy or INR<2.0: No Anticoagulant overlap therapy prescribed at discharge: No Contraindication No Overlap Therapy order at DC: Not Indicated Exam - Physical Exam Narrative exam: Gen: WDWN, NAD, Awake, Alert, Orientated x 3 HEENT: NCAT, EOMI, PERRL, OP Clear Neck: supple, no adenopathy, no thyromegaly, no JVD CVS/Heart: RRR, normal S1S2, pulses present bilaterally Chest/Lungs: CTA B, Symmetrical chest expansion, good air entry bilaterally GI/Abdomen: soft, barely anymore LLQ tenderness, good bowel sounds, no guarding or rebound /Bladder: no suprapubic tenderness, no CVA or paraspinal tenderness Extermity/Skin: no c/c/e, no obvious rash MSK: FROM x 4 Neuro: CN 2-12 grossly intact, no new focal deficits Psych: calm - Constitutional Vitals: Temp Pulse Resp BP Pulse Ox 97.8 F 70 18 147/80 96 03/03/19 04:51 03/03/19 04:51 03/03/19 04:51 03/03/19 04:51 03/03/19 04:51 Plan Activity: other (no strenous activity unless cleared by General Surgeon) Diet: other (soft diet) Follow up with: [facility] [Primary Care Provider] - 3-5 Days MILO FORD MD [Staff Physician] - 7 Days Prescriptions: Ciprofloxacin HCl [Ciprofloxacin TAB] 500 mg PO BID #20 tab metroNIDAZOLE [Flagyl] 500 mg PO TID #30 tablet amLODIPine [Norvasc] 5 mg PO QDAY #30 tablet Acetaminophen [Tylenol] 2 tab PO Q4HR PRN #10 capsule PRN Reason: Non Cardiac Pain Or Temp>100.5
--- NOTE | 2019-03-03 12:17 | Progress Note ---
Assessment and Plan Assessment and plan: Patient is a 53 yo man with a history hypertension who presented with abd pain, nausea and vomiting. * CT abd/pelvis with contrast IMPRESSION: 1. Moderate acute diverticulitis the distal descending colon with small pneumoperitoneum. 2. Fatty infiltration liver -Acute complicated Diverticulitis with suspected perforation: GS consulted, input noted, recommend Cardiology evaluation for pre-op evaluation, npo, treat with empiric abx, ivf -Uncontrolled hypertension: iv hydralazine prn -Hypokalemia: replace and monitor bmp closely He is doing very well, and daughter at bedside. He wants to go home, the pain is nearly gone. He is drinking coffee and eating jello without problems. Will advance diet and if he tolerates then will discharge home. History Interval history: Patient was seen and examined. Follow-up on current diagnosis of Diverticulitis. No overnight events reported to me. Patient denies any chest pain, shortness breath, severe headaches. Imaging, nursing note, chart, labs and old chart reviewed. Discussed with patient. Hospitalist Physical - Physical exam Narrative exam: Gen: WDWN, NAD, Awake, Alert, Orientated x 3 HEENT: NCAT, EOMI, PERRL, OP Clear Neck: supple, no adenopathy, no thyromegaly, no JVD CVS/Heart: RRR, normal S1S2, pulses present bilaterally Chest/Lungs: CTA B, Symmetrical chest expansion, good air entry bilaterally GI/Abdomen: soft, barely anymore LLQ tenderness, good bowel sounds, no guarding or rebound /Bladder: no suprapubic tenderness, no CVA or paraspinal tenderness Extermity/Skin: no c/c/e, no obvious rash MSK: FROM x 4 Neuro: CN 2-12 grossly intact, no new focal deficits Psych: calm - Constitutional Vitals: Temp Pulse Resp BP Pulse Ox 97.8 F 70 18 147/80 96 03/03/19 04:51 03/03/19 04:51 03/03/19 04:51 03/03/19 04:51 03/03/19 04:51 Results - Labs CBC & Chem 7: 03/01/19 Unknown 03/02/19 05:06 Labs: Laboratory Last Values WBC 9.1 K/mm3 (4.5-11.0) 03/01/19 Unknown RBC 4.39 M/mm3 (3.65-5.03) 03/01/19 Unknown Hgb 12.9 gm/dl (11.8-15.2) 03/01/19 Unknown Hct 38.6 % (35.5-45.6) 03/01/19 Unknown MCV 88 fl (84-94) 03/01/19 Unknown MCH 29 pg (28-32) 03/01/19 Unknown MCHC 33 % (32-34) 03/01/19 Unknown RDW 13.2 % (13.2-15.2) 03/01/19 Unknown Plt Count 276 K/mm3 (140-440) 03/01/19 Unknown Lymph % (Auto) 25.0 % (13.4-35.0) 03/01/19 Unknown [place] % (Auto) 7.3 % (0.0-7.3) 03/01/19 Unknown Eos % (Auto) 1.0 % (0.0-4.3) 03/01/19 Unknown Baso % (Auto) 0.5 % (0.0-1.8) 03/01/19 Unknown Lymph # 2.3 K/mm3 (1.2-5.4) 03/01/19 Unknown [place] # 0.7 K/mm3 (0.0-0.8) 03/01/19 Unknown Eos # 0.1 K/mm3 (0.0-0.4) 03/01/19 Unknown Baso # 0.0 K/mm3 (0.0-0.1) 03/01/19 Unknown Seg Neutrophils % 66.2 % (40.0-70.0) 03/01/19 Unknown Seg Neutrophils # 6.0 K/mm3 (1.8-7.7) 03/01/19 Unknown Sodium 139 mmol/L (137-145) 03/02/19 05:06 Potassium 3.8 mmol/L (3.6-5.0) 03/02/19 05:06 Chloride 105.9 mmol/L (98-107) 03/02/19 05:06 Carbon Dioxide 23 mmol/L (22-30) 03/02/19 05:06 Anion Gap 14 mmol/L 03/02/19 05:06 BUN 8 mg/dL (9-20) L 03/02/19 05:06 Creatinine 0.8 mg/dL (0.8-1.5) 03/02/19 05:06 Estimated GFR > 60 ml/min 03/02/19 05:06 BUN/Creatinine Ratio 10 % 03/02/19 05:06 Glucose 102 mg/dL (75-100) H 03/02/19 05:06 Calcium 7.9 mg/dL (8.4-10.2) L 03/02/19 05:06 Magnesium 1.80 mg/dL (1.7-2.3) 03/02/19 Unknown Total Bilirubin 0.60 mg/dL (0.1-1.2) 03/01/19 Unknown AST 23 units/L (5-40) 03/01/19 Unknown ALT 33 units/L (7-56) 03/01/19 Unknown Alkaline Phosphatase 96 units/L (35-129) 03/01/19 Unknown Total Creatine Kinase 216 units/L (55-170) H 03/02/19 Unknown Total Protein 7.7 g/dL (6.3-8.2) 03/01/19 Unknown Albumin 4.1 g/dL (3.9-5) 03/01/19 Unknown Albumin/Globulin Ratio 1.1 % 03/01/19 Unknown Lipase 25 units/L (13-60) 03/01/19 Unknown Urine Color Yellow (Yellow) 03/02/19 Unknown Urine Turbidity Clear (Clear) 03/02/19 Unknown Urine pH 6.0 (5.0-7.0) 03/02/19 Unknown Ur Specific [place] 1.055 (1.003-1.030) H 03/02/19 Unknown Urine Protein <15 mg/dl mg/dL (Negative) 03/02/19 Unknown Urine Glucose (UA) Neg mg/dL (Negative) 03/02/19 Unknown Urine Ketones Neg mg/dL (Negative) 03/02/19 Unknown Urine Blood Neg (Negative) 03/02/19 Unknown Urine Nitrite Neg (Negative) 03/02/19 Unknown Urine Bilirubin Neg (Negative) 03/02/19 Unknown Urine Urobilinogen < 2.0 mg/dL (<2.0) 03/02/19 Unknown Ur Leukocyte Esterase Mod (Negative) 03/02/19 Unknown Urine WBC (Auto) 3.0 /HPF (0.0-6.0) 03/02/19 Unknown Urine RBC (Auto) 2.0 /HPF (0.0-6.0) 03/02/19 Unknown U Epithel Cells (Auto) 11.0 /HPF (0-13.0) 03/02/19 Unknown Urine Mucus Few /HPF 03/02/19 Unknown Active Medications - Current Medications Current Medications: Generic Name Dose Route Start Last Admin Trade Name Freq PRN Reason Stop Dose Admin Acetaminophen 650 mg 03/02/19 02:47 Tylenol MD Q4H PRN Fever >101 Amlodipine Besylate 5 mg 03/03/19 11:30 Norvasc PO QDAY REGINA Hydralazine HCl 10 mg 03/02/19 03:09 Apresoline IV Q4HR PRN Blood Pressure Dextrose/Sodium Chloride 1,000 mls @ 125 mls/hr 03/02/19 03:00 03/03/19 08:40 D5/0.45ns IV 125 mls/hr DIRECT REGINA Administration Piperacillin Sod/Tazobactam Sod 3.375 gm in 50 mls @ 100 mls/hr 03/02/19 10:00 03/03/19 10:50 Zosyn/Ns 3.375gm/50ml IV 100 mls/hr Q8H REGINA Administration Protocol Metronidazole 500 mg in 100 mls @ 100 mls/hr 03/02/19 10:00 03/03/19 10:50 Flagyl 500 Mg/100 Ml IV 100 mls/hr Q8H REGINA Administration Protocol Morphine Sulfate 2 mg 03/02/19 02:46 Morphine IV Q3H PRN Pain, Moderate (4-6) Ondansetron HCl 4 mg 03/02/19 02:46 Zofran IV Q8H PRN Nausea And Vomiting
[2019-03-03 13:15] VITALS: BP 148/79
--- NOTE | 2019-03-03 13:53 | Progress Note ---
Assessment and Plan - Patient Problems (1) Diverticulitis of colon with perforation Current Visit: Yes Status: Acute Qualifiers: Diverticulitis bleeding: without bleeding Qualified Code(s): K57.20 - Diverticulitis of large intestine with perforation and abscess without bleeding Plan to address problem: Pt stable. Patient is clearly doing better. Agree with the hospitalist's decision to advance the diet. Recommend that he have a low residue diet. We discussed the issue of surgery again. I emphasized to him that this is our recommendation, and not something that we will force him to do. As he had a complicated diverticulitis, the standard recommendation is for surgery. Regardless, I do recommend that he have a colonoscopy once this attack resolves. I also emphasized the importance of changing his diet which we discussed yesterday. If he tolerates the soft diet, it would be fine to let him go on oral antibiotics. Would make sure that he tolerates the initial dose before we send him home. Follow-up in the office after his colonoscopy is done in 6 weeks. We'll follow along. Please call with questions. Time = 10 minutes Subjective Date of service: 03/03/19 Patient Reports: Positive: no new complaints, feels better, pain is less, flatus, other (wants to know if there are any other options beside surgery). Negative: nausea, vomiting Objective Vital Signs - 12hr 03/03/19 03/03/19 04:51 12:02 Temperature 97.8 F 98.3 F Pulse Rate 70 59 L Respiratory 18 18 Rate Blood Pressure 147/80 148/79 O2 Sat by Pulse 96 99 Oximetry - General physical appearance no distress, no pain - Eyes normal occular movement - Respiratory normal expansion, normal respiratory effort - Abdomen soft, not tender, not distended, not guarding, not rigid - Integumentary no rash, no growths, no abnormal pigmentation - Psychiatric oriented to time, oriented to person, oriented to place, speech is normal, memory intact - Labs 03/01/19 Unknown 03/02/19 05:06
== END 2019-03-03 18:46 | disposition home or self-care (01) | DRG 392 ==
LOC: ED 22:04 → 3A 03-02 04:11
PROVIDERS: ADMIT Internal Medicine; ATTEND Internal Medicine
DX: K57.20 Diverticulitis of large intestine with perforation and abscess without bleeding (principal); K59.00 Constipation, unspecified; K66.8 Other specified disorders of peritoneum; I10 Essential (primary) hypertension; E87.6 Hypokalemia; K76.0 Fatty (change of) liver, not elsewhere classified; Z87.891 Personal history of nicotine dependence; Z79.899 Other long term (current) drug therapy
CPT/HCPCS: 36415; 74177; 80048; 80053; 81001; 82550; 83690; 83735; 85025; 87086; 93005; 93010; 96365; 96375; G0378; J2270; J2543; J7030; J7040; Q9967